=== PATIENT | male | born 1950 | race Caucasian/White ===

== ENCOUNTER → 2024-01-04 10:23 | Outpatient (BNVA) | payer MEDICARE, SELFPAY | PROVIDERS: Visit Provider Nurse Practitioner Family | DX: S82.832A Other fracture of upper and lower end of left fibula, initial encounter for closed fracture (principal); X58.XXXA Exposure to other specified factors, initial encounter | CPT/HCPCS: 73610 ==

== ENCOUNTER → 2024-01-06 07:48 | Outpatient (BNVA) | payer MEDICARE, SELFPAY | PROVIDERS: Visit Provider Podiatrist Foot & Ankle Surgery | DX: S82.832A Other fracture of upper and lower end of left fibula, initial encounter for closed fracture; W18.09XA Striking against other object with subsequent fall, initial encounter | CPT/HCPCS: 29580; 99204 ==

== ENCOUNTER → 2024-01-13 07:49 | Outpatient (BNVA) | payer MEDICARE, SELFPAY | PROVIDERS: Visit Provider Podiatrist Foot & Ankle Surgery | DX: S82.832A Other fracture of upper and lower end of left fibula, initial encounter for closed fracture (principal); W18.09XA Striking against other object with subsequent fall, initial encounter | CPT/HCPCS: 73590; 99213 ==

== ENCOUNTER 2024-01-16 06:42 | Day surgery (SDC) | payer MEDICARE, SELFPAY ==
[2024-01-16] VITALS (11 sets, daily range): BP systolic 152–176; BP diastolic 67–106; PULSE 88–95; RESP 14–24; TEMP 36.2–37; O2SAT 95–100; BMI 22.8
[2024-01-16] MEDS: sodium chloride 0.9% 1,000 ML 30 ML IV (07:10)
--- NOTE | 2024-01-16 07:17 | ANES.PREANE2 ---
Pre-Anesthetic Assessment Height/Weight: Height 1.75 m Weight 70.307 kg Temp Pulse Resp BP Pulse Ox O2 Del Method 98.6 F 93 16 175/86 96 Room Air 01/16/24 06:59 01/16/24 06:59 01/16/24 06:59 01/16/24 06:59 01/16/24 06:59 01/16/24 06:59 Preop Diagnosis: Left distal fibular fracture Operation Date: 01/16/24 08:10 Proposed Procedures p ORIF Ankle ORIF Distal Fibula(Left) - Tray Saenz DPM Familial anesthetic complications: None Was Beta Darshana taken within 24 hours: N/A Was Clonidine taken within 24 hours: N/A Last intake: Intake Last Liquid Date 01/16/24 Last Liquid Time 05:00 Last Solid Date 01/15/24 Last Solid Time 15:00 Social Tobacco (encouraged smoking cessation) and No alcohol Exam alert, oriented x 3, clear to auscultation bilaterally and regular rate & rhythm Airway Mallampati: Class II Dentition: other (no teeth) Anesthetic Plan ASA status: 2 Anesthesia: General Risk of > 500 ml blood loss (7ml/kg in children): No Medications/Allergies Home Medications Medication Instructions Recorded Confirmed Last Taken Type No Known Home Medications 01/04/24 01/15/24 Unknown History Allergies Allergy/AdvReac Type Severity Reaction Status Date / Time No Known Allergies Allergy Verified 01/13/24 06:46 Data Anesthesia Cardiac Studies: No Data to Display
--- NOTE | 2024-01-16 08:13 | P.HPUD_ITS ---
Surgery/Procedure H&P Update DATE OF PROCEDURE: January 16, 2024 DATE H&P PERFORMED: 01/13/24 H&P UPDATE INFORMATION: I have reviewed H&P completed within last 30 days, I have examined patient prior to procedure, No changes to prior documentation and H&P is in [facility] [place] date indicated PREOP DIAGNOSIS: Left distal fibular fracture PRIMARY INDICATION FOR PROCEDURE: Left distal fibular fracture PLANNED PROCEDURE: Operation Date: 01/16/24 08:10 Proposed Procedures p ORIF Ankle ORIF Distal Fibula(Left) - Tray Saenz DPM
[2024-01-16] MEDS: ceFAZolin 2,000 MG in sodium chloride 0.9% (plus) 50 ML 100 MG IV (08:47)
[2024-01-16] MEDS: BUPivacaine 0.5% INJ 30 mL 20 ML INJECTION (09:18)
[2024-01-16] MEDS: lidocaine 2% INJ 20 mL 10 ML INJECTION (09:19)
--- NOTE | 2024-01-16 09:39 | P.BOP_ITS ---
Date of Procedure: 01/09/24 Surgeon: Tray Saenz DPM Chips Screen Tender(s): LICHA, and Procedure(s) performed: Open reduction internal fixation left distal fibular fracture Findings of the procedure(s): None Estimated blood loss: 5 mL Specimen(s) removed: None Post-operative diagnosis: Left distal fibular fracture No complications with anesthesia or surgery
--- NOTE | 2024-01-16 09:39 | PM.OP ---
Operative Report Date of procedure: January 16, 2024 Pre-op diagnosis: Diagnosis: Fracture of distal end of left fibula, S82.832A Post-op diagnosis: Diagnosis: Fracture of distal end of left fibula, S82.832A Procedure done: Open reduction internal fixation left distal fibula. CPT code 30620 Implants: [place]cola anatomic fibular plate with 3.5 mm locking screws, 2-0 Vicryl, 3-0 Vicryl, skin jacinto Specimens removed/disposition: None Pathology: None Surgeon: Tray Saenz DPM Commercial Collector: Fausto Estimated blood loss: 5 29 IV fluids: See intraoperative documentation Urine output: None Complications: None Brief History: Patient has significant edema and ecchymosis to the left ankle and foot with fracture blisters present. Advised patient to elevate his feet while resting. Remain strict nonweightbearing and immobilized with cam boot at all times to the left lower extremity. Unna boot applied for edema control and fracture blister management consisting of the Unna boot, Kerlix and Coban followed by stockinette to be left on for 5 to 7 days. Will return to clinic on Friday next week for soft tissue envelope inspection, anticipating ORIF once soft tissue is improved of swelling and ecchymosis and fracture blister. I reviewed at length with the patient, the risks, potential complications, benefits, alternatives, expectations, and typical outcomes associated with the surgery. The risks and potential complications were explained in detail, including but not limited to infection, wound dehiscence or soft tissue complications, bleeding and hematoma, chronic edema, neuritis or nerve damage producing numbness or chronic pain, CRPS, failure to relieve pain or worsening pain, thick / painful / unsightly scar, limited motion / stiffness, malposition, delayed union, malunion, or nonunion, fracture, reaction to implants, anesthetic complications, venous thromboembolism, and deformity recurrence. I discussed the notion of no regrets with the patient as it pertains to complications and outcomes. The patient seemed to understand the nature of the proposed care and required convalescence. They asked appropriate questions, answered to their satisfaction. They are aware no guarantees can be made as to a satisfactory outcome and they understand there may be other possible unforeseen complications or outcomes not listed here that will be treated accordingly if they arise. There were no written or implied guarantees given to the patient. They gave informed consent to proceed. Procedure: Under mild sedation patient was brought to the operating room and remained on the gurney in supine position. A timeout was performed. Anesthesia was then administered by the anesthesia service. Local anesthesia was injected by myself consisting of one-to-one mixture 1% lidocaine and 0.5 to Marcaine plain total of 30 cc utilized in a proximal V-block to the left lateral leg. Well-padded pneumatic tourniquet applied to the left high calf. Left lower extremity was scrubbed, prepped and draped utilizing normal aseptic technique and examined with an Esmarch bandage followed by inflation of the tourniquet to 250 mmHg. Attention was directed to the lateral malleolus where a linear longitudinal incision was made directly over the distal fibula through skin with #15 blade with dissection carried down to the fracture utilizing sharp and blunt technique. Care was taken to retract and preserve neurovascular and tendinous structures. All bleeders were ligated and cauterized as necessary. Fracture was identified, distracted, curettaged and flushed with saline solution followed by reduction in all 3 planes it was pulled out to length and the rotated and held with fracture reduction forceps followed by fixation with a anatomic fibular plate by Blanka Gu with 3.5 mm locking screws with excellent bony apposition and compression noted. AP, oblique and lateral view show that the hardware did not violate the ankle mortise, ankle mortise was congruent. Cotton hook test indicated no syndesmotic disruption. The incision was irrigated with saline solution and closed in a layered fashion. Periosteum reapproximated with 2-0 Vicryl, subcutaneous tissue reapproximated 3-0 Vicryl and skin with skin jacinto. Dressings consisting of Adaptic, sterile 4 x 4's, Kerlix, Chris wrap and a cam boot was applied to the left lower extremity. Tourniquet was deflated and a prompt hyperemic response was noted to the distal digits of the left foot. Patient tolerated the procedure and anesthesia well and was transferred to the PACU with vital signs stable and vascular status intact. Following. Postoperative monitoring he will be discharged home was given at home care instructions, he was advised to remain strict nonweightbearing to the left lower extremity to elevate the left foot while resting. Was given follow-up appointment and my cell phone number to contact with any postoperative questions or concerns.
--- NOTE | 2024-01-16 10:55 | ANE.PACU2 ---
Inpatient post-anesthesia follow up: Airway intact: Yes Vital signs: Temperature 97.3 F Pulse Rate 89 Respiratory Rate 18 Blood Pressure 168/89 Pulse Oximetry 96 Oxygen Delivery Me thod Room Air Oxygen Flow Rate 2 Fraction of Inspir ed Oxygen Hydration adequate: Yes Nausea and vomiting: No Pain level: 1 Mental status: Baseline
--- NOTE | 2024-01-16 13:17 | XR_ITS ---
WS: [id number] Exam: XR ankle LT 1V [id number] Date/Time of Exam: 01/16/2024 1:17 PM Reason For Exam: OR PIC DONE 01/16/24 Single anterior posterior intraoperative image of the LEFT ankle is submitted. The image depicts plate and screw fixation involving a fracture of the lower fibula. No other signifi cant finding on this limited series.
== END 2024-01-16 10:55 | disposition home or self-care (01) ==
PROVIDERS: Visit Provider Podiatrist Foot & Ankle Surgery
PROC: (CPT 27792; principal; 2024-01-16 08:00)
DX: S82.832A Other fracture of upper and lower end of left fibula, initial encounter for closed fracture (principal); W01.0XXA Fall on same level from slipping, tripping and stumbling without subsequent striking against object, initial encounter
CPT/HCPCS: 27792; 73600; 76000; C1713; J0690; J1100; J2250; J2405; J2704; J3010; J3490; J7030

== ENCOUNTER → 2024-01-23 11:49 | Outpatient (BNVA) | payer MEDICARE, SELFPAY | PROVIDERS: Visit Provider Podiatrist Foot & Ankle Surgery | DX: S82.832A Other fracture of upper and lower end of left fibula, initial encounter for closed fracture (principal); X58.XXXA Exposure to other specified factors, initial encounter | CPT/HCPCS: 73610 ==

== ENCOUNTER 2024-02-05 14:42 | Outpatient (CLI) | payer MEDICARE, SELFPAY | END 2024-02-05 14:43 | disposition home or self-care (01) | LOC: RAD 14:42 | PROVIDERS: Visit Provider Registered Nurse | DX: M81.0 Age-related osteoporosis without current pathological fracture (principal); Z98.890 Other specified postprocedural states; Z87.81 Personal history of (healed) traumatic fracture; Z91.199 Patient's noncompliance with other medical treatment and regimen due to unspecified reason; S82.832D Other fracture of upper and lower end of left fibula, subsequent encounter for closed fracture with routine healing; X58.XXXD Exposure to other specified factors, subsequent encounter | CPT/HCPCS: 73610; 99024 ==

== ENCOUNTER → 2024-02-12 08:08 | Outpatient (BNVA) | payer MEDICARE, SELFPAY | PROVIDERS: Visit Provider Podiatrist Foot & Ankle Surgery | DX: Z98.890 Other specified postprocedural states (principal); Z91.199 Patient's noncompliance with other medical treatment and regimen due to unspecified reason; T81.31XD Disruption of external operation (surgical) wound, not elsewhere classified, subsequent encounter; Y83.8 Other surgical procedures as the cause of abnormal reaction of the patient, or of later complication, without mention of misadventure at the time of the procedure | CPT/HCPCS: 99213 ==

== ENCOUNTER → 2024-02-26 13:02 | Outpatient (BNVA) | payer MEDICARE, SELFPAY | PROVIDERS: Visit Provider Podiatrist Foot & Ankle Surgery | DX: Z98.890 Other specified postprocedural states (principal); T81.31XD Disruption of external operation (surgical) wound, not elsewhere classified, subsequent encounter; Y83.8 Other surgical procedures as the cause of abnormal reaction of the patient, or of later complication, without mention of misadventure at the time of the procedure; Z91.199 Patient's noncompliance with other medical treatment and regimen due to unspecified reason | CPT/HCPCS: 73610; 99024 ==

== ENCOUNTER → 2024-03-11 13:49 | Outpatient (BNVA) | payer MEDICARE, SELFPAY | PROVIDERS: Visit Provider Podiatrist Foot & Ankle Surgery | DX: Z98.890 Other specified postprocedural states (principal); T81.31XD Disruption of external operation (surgical) wound, not elsewhere classified, subsequent encounter; Z91.199 Patient's noncompliance with other medical treatment and regimen due to unspecified reason; Y83.8 Other surgical procedures as the cause of abnormal reaction of the patient, or of later complication, without mention of misadventure at the time of the procedure | CPT/HCPCS: 73610; 99024 ==

== ENCOUNTER → 2025-05-23 10:04 | Outpatient (BNVA) | payer MEDICARE, SELFPAY | PROVIDERS: PCP Family Medicine; Visit Provider Podiatrist Foot & Ankle Surgery | DX: M25.572 Pain in left ankle and joints of left foot (principal); L97.322 Non-pressure chronic ulcer of left ankle with fat layer exposed; S91.002D Unspecified open wound, left ankle, subsequent encounter; X58.XXXD Exposure to other specified factors, subsequent encounter; L03.116 Cellulitis of left lower limb | CPT/HCPCS: 11042; 73610; 87070; 87075; 87186; 87205; 99214 ==

== ENCOUNTER → 2025-05-30 12:39 | Outpatient (BNVA) | payer MEDICARE, SELFPAY | PROVIDERS: PCP Family Medicine; Visit Provider Podiatrist Foot & Ankle Surgery | DX: M25.572 Pain in left ankle and joints of left foot (principal); L97.322 Non-pressure chronic ulcer of left ankle with fat layer exposed; L03.116 Cellulitis of left lower limb | CPT/HCPCS: 99213 ==

== ENCOUNTER → 2025-06-13 10:48 | Outpatient (BNVA) | payer MEDICARE, SELFPAY | PROVIDERS: PCP Family Medicine; Visit Provider Podiatrist Foot & Ankle Surgery | DX: L97.322 Non-pressure chronic ulcer of left ankle with fat layer exposed (principal); L03.116 Cellulitis of left lower limb | CPT/HCPCS: 99213 ==